=== PATIENT | male | born 1960 | race Caucasian/White ===

== ENCOUNTER 2020-10-27 01:00 | Emergency (ER) | payer BC, OTHER, SELFPAY ==
[2020-10-27] MEDS ORDERED: Heparin 5,000 UNITS/ML VIAL ONE (01:17)
[2020-10-27] MEDS ORDERED: Aspirin Chewable 81 MG TAB ONE (01:17)
[2020-10-27] MEDS ORDERED: Nitroglycerin 2% Ointment 1 INCH/1 GM Packet ONE (01:17)
[2020-10-27] MEDS ORDERED: Nitroglycerin 50 MG/250 ML BOT 250 ML ONE (01:20)
[2020-10-27 01:28] LABS: #Basophils 0.1 thou/uL (0.0-0.2); #Lymphocytes 1.4 thou/uL (1.20-3.40); #Monocytes 0.7 thou/uL (0.11-0.59); #Neutrophils 3.4 thou/uL (1.40-6.50); %Basophils 1.9 % (0.0-1.0); %Eosinophils 0.2 % (0.0-10.0); %Monocytes 12.9 % (0.0-10.0); Hemoglobin 15.6 g/dL (14.0-18.0); Mean Corpuscular HGB CONC 32.8 g/dL (32.0-36.0); Mean Corpuscular Hemoglobin 29.8 pg (27.0-31.0); Mean Corpuscular Volume 90.8 fL (78.0-98.0); Mean Platelet Volume 6.5 fL (7.4-10.4); Platelet Count 174 thou/uL (130-400); RBC Distribution Width 12.1 % (11.5-14.5); Red Blood Cell (RBC) Count 5.24 mill/uL (4.70-6.10); White Blood Cell (WBC) Count 5.7 thou/uL (4.8-10.8)
[2020-10-27] MEDS ORDERED: Metoprolol Tartrate 5 MG/5 ML VIAL ONE ×2 (01:29→01:33)
[2020-10-27] MEDS ORDERED: Fentanyl 100 MCG/2 ML VIAL ONE (01:33)
[2020-10-27] MEDS ORDERED: Heparin 25,000 units/D5W 500 ML ONE (01:36)
[2020-10-27 01:42] LABS: ALT (SGPT) 49 U/L (8-55); AST (SGOT) 48 U/L (5-34); Albumin 4.1 g/dL (3.4-4.8); Alkaline Phosphatase 86 U/L (40-110); Anion Gap 17 mmol/L (10-20); BUN (Urea Nitrogen) 12 mg/dL (8.4-25.7); Bilirubin, Total 0.4 mg/dL (0.2-1.2); Calc. Creatinine Clearance 0 mL/min (70-130); Calcium 8.5 mg/dL (7.8-10.44); Carbon Dioxide 20 mmol/L (23-31); Chloride 102 mmol/L (98-107); Globulin 2.9 g/dL (2.4-3.5); Glucose 302 mg/dL (80-115); Lipase 18 U/L (8-78); Potassium 3.9 mmol/L (3.5-5.1); Sodium 135 mmol/L (136-145)
--- NOTE | 2020-10-27 08:09 | RAD ---
CHEST 1 VIEW: Date: 10/27/2020 Time: 0128 hours HISTORY: Chest pain. FINDINGS/IMPRESSION: The heart size is borderline. The lungs are well expanded without lobar consolidation, pneumothoraces , madeleine pulmonary edema, or large effusions. POS: OFF
== END 2020-10-27 02:00 | disposition short-term general hospital (02) ==
LOC: BURERS 01:00
DX: I21.3 ST elevation (STEMI) myocardial infarction of unspecified site (principal); Z79.84 Long term (current) use of oral hypoglycemic drugs; E11.9 Type 2 diabetes mellitus without complications
CPT/HCPCS: 71045; 80053; 82553; 83690; 83880; 84484; 85025; 93005; 94760; 96365; 96368; 96375; J1644; J3010